=== PATIENT | female | born 1995 | race Caucasian/White ===

== ENCOUNTER 2021-11-13 17:09 | Outpatient (RCR) | payer OTHER, SELFPAY ==
[2021-11-14] MEDS: RHO(D) IMMUNE GLOBULIN 300 MCG/2 ML SYRINGE IM (13:18)
== END 2022-02-11 23:59 | disposition home or self-care (01) ==
LOC: ANHLAB 17:09
PROVIDERS: PCP Registered Nurse; Visit Provider Obstetrics & Gynecology
DX: Z29.13 Encounter for prophylactic Rho(D) immune globulin (principal); O36.0190 Maternal care for anti-D [Rh] antibodies, unspecified trimester, not applicable or unspecified; Z3A.00 Weeks of gestation of pregnancy not specified
CPT/HCPCS: 36415; 85461; 90384; 96372; J2790

== ENCOUNTER 2021-12-19 11:17 | Outpatient (CLI) | payer OTHER, SELFPAY ==
[2021-12-19 11:48] VITALS: BMI 30.8
[2021-12-19 11:57] VITALS: BP 117/68; PULSE 88
[2021-12-19 12:00] VITALS: BP 118/66; PULSE 85
[2021-12-19 12:03] LABS: Basophils Percent Auto 0.4 % (0.2-1.2); Eosinophils Percent Auto 0.3 % (0-4.4); Hematocrit 30.1 % (37.0-47.0); Hemoglobin 9.4 g/dL (12.0-15.0); Immature Granulocyte Absolute 0.08 K/mm3 (0.00-0.031); Immature Granulocyte Percent A 0.9 % (0-0.5); Lymphocytes Absolute Auto 2.14 K/mm3 (0.9-3.2); Lymphocytes Percent Auto 22.9 % (18.3-44.2); Mean Corpuscular HGB Conc 31.2 g/dl (32-36); Mean Corpuscular Hemoglobin 28.1 pg (26-34); Mean Corpuscular Volume 90.1 fl (80-100); Mean Platelet Volume 11.2 fl (7.4-10.4); Monocytes Absolute Auto 0.5 K/mm3 (0.1-0.6); Monocytes Percent Auto 5.8 % (2.6-8.5); Neutrophils Absolute Auto 6.5 K/mm3 (1.3-6.7); Neutrophils Percent Auto 69.7 % (45.5-73.1); Platelet Count Result 187 k/mm3 (150-375); Red Blood Count 3.34 M/mm3 (4.2-5.4); Red Cell Distribution Width 13.2 % (11.5-14.5); White Blood Count 9.3 K/mm3 (4.5-10.0)
[2021-12-19] MEDS: HYDROcodone/acetaminophen (*CRX) 5-325 MG TABLET 1 TAB PO (12:03)
[2021-12-19 12:09] LABS: Creatinine Urine 278.3 mg/dL
[2021-12-19 12:11] LABS: Total Protein Urine Random < 5 mg/dL; Ur Ttl Prot Creatinine Ratio < 0.02 mg/mg (0-0.20)
[2021-12-19 12:13] LABS: Bacteria Urine Trace /hpf; Mucus Urine Heavy /lpf; Squamous Epithelial Cell Urine Many /hpf (Few); WBC Urine 16-20 /hpf (0-3)
[2021-12-19 12:15] VITALS: BP 119/71; PULSE 83
[2021-12-19 12:15] LABS: Alanine Aminotransferase 10 U/L (6-35); Albumin Level 3.2 g/dL (3.5-5.1); Alkaline Phosphatase 106 U/L (38-126); Anion Gap 4 mmol/L (8-16); Aspartate Amino Transferase 19 U/L (14-36); Bilirubin,Total 0.1 mg/dL (0.2-1.3); Blood Urea Nitrogen 7 mg/dL (7-17); Calcium 8.1 mg/dL (8.4-10.2); Carbon Dioxide 21 mmol/L (22-30); Chloride 110 mmol/L (98-107); Estimated CRCL calculation 187 ml/min; Estimated Glomerular Filt Rate > 60; Glucose 85 mg/dL (65-110); Potassium 3.7 mmol/L (3.4-5.0); Sodium 135 mmol/L (137-145); Uric Acid 2.1 mg/dL (2.5-7.5)
[2021-12-19 12:19] LABS: Add Urine Microscopic? YES; Appearance Urine Slightly Cloudy (Clear); Bilirubin Urine 1+ (Negative); Blood Urine Negative (Negative); Color Urine Yellow (Yellow); Glucose Urine UA Negative (Negative); Ketones Urine Negative (Negative); Leukocyte Esterase Ur 1+ LEU/UL (NEGATIVE); Nitrate Urine Negative (Negative); Protein Urine 1+ mg/dL (Negative); Specific Grav Ur >= 1.030 (1.001-1.035)
[2021-12-19 12:30] VITALS: BP 117/65; PULSE 80
== END 2021-12-19 13:20 | disposition home or self-care (01) ==
LOC: ANHOBOP 11:25 → ANHOBPP 11:27
PROVIDERS: PCP Registered Nurse; Visit Provider Obstetrics & Gynecology
DX: O13.9 Gestational [pregnancy-induced] hypertension without significant proteinuria, unspecified trimester (principal); Z3A.00 Weeks of gestation of pregnancy not specified
CPT/HCPCS: 36415; 59025; 80053; 81001; 82570; 84156; 84550; 85025; 87086; 87088; 99199; A9270

== ENCOUNTER 2022-01-09 16:18 | Inpatient (IN) | payer OTHER, SELFPAY ==
[2022-01-09] VITALS (15 sets, daily range): BP systolic 110–131; BP diastolic 67–80; PULSE 66–142; RESP 18; TEMP 36.2–36.4; BMI 31.5
--- NOTE | 2022-01-09 16:18 | LDADM ---
This patient, Angela Jim, was admitted to Labor/Delivery/Recovery 108 on 01/09/22 at 16:18. Plans for labor, pain management and were discussed with patient. Patient/family oriented to hospital policies and general routines including ID bracelet, bed and alarms, visiting hours, pain management, procedures, bathroom and other care routines, personal items, smoking policy, room service/diet and guest tray routines, security routines, and visiting hours. Patient/Family are encouraged to report perceived risks to care and to ask questions if they do not understand what they are told or what they should do. See OBIX for further documentation.
[2022-01-09 17:08] LABS: Basophils Percent Auto 0.2 % (0.2-1.2); Eosinophils Percent Auto 0.2 % (0-4.4); Hematocrit 30.1 % (37.0-47.0); Hemoglobin 9.3 g/dL (12.0-15.0); Immature Granulocyte Absolute 0.08 K/mm3 (0.00-0.031); Lymphocytes Absolute Auto 1.92 K/mm3 (0.9-3.2); Lymphocytes Percent Auto 23.2 % (18.3-44.2); Mean Corpuscular HGB Conc 30.9 g/dl (32-36); Mean Corpuscular Hemoglobin 27.2 pg (26-34); Mean Platelet Volume 10.9 fl (7.4-10.4); Monocytes Absolute Auto 0.4 K/mm3 (0.1-0.6); Monocytes Percent Auto 4.2 % (2.6-8.5); Neutrophils Absolute Auto 5.9 K/mm3 (1.3-6.7); Neutrophils Percent Auto 71.2 % (45.5-73.1); Platelet Count Result 208 k/mm3 (150-375); Red Blood Count 3.42 M/mm3 (4.2-5.4); Red Cell Distribution Width 13.4 % (11.5-14.5); White Blood Count 8.3 K/mm3 (4.5-10.0)
--- NOTE | 2022-01-09 17:24 | P.PNAN_ITS ---
Anes - Eval Pre Procedure Procedure: labor epidural Date/Time: 01/09/22 17:24 Surgeon: barrie Pre Op Diagnosis: Induction of Labor Patient Data Age: 26 Gender: F Height: 1.65 m Weight: 86 kg Last Vital Signs Pulse 142 H 01/09/22 17:00 BP 118/72 01/09/22 17:00 Allergies Allergy/AdvReac Type Severity Reaction Status Date / Time No Known Allergies Allergy Verified 12/19/21 11:47 Laboratory Tests 01/09/22 01/09/22 16:59 16:59 WBC 8.3 K/mm3 K/mm3 (4.5-10.0) RBC 3.42 M/mm3 L M/mm3 (4.2-5.4) Hgb 9.3 g/dL L g/dL (12.0-15.0) Hct 30.1 % L % (37.0-47.0) MCV 88.0 fl fl (80-100) MCH 27.2 pg pg (26-34) MCHC 30.9 g/dl L g/dl (32-36) RDW 13.4 % % (11.5-14.5) Plt Count 208 k/mm3 k/mm3 (150-375) MPV 10.9 fl H fl (7.4-10.4) Immature Gran % (Auto) 1.0 % H % (0-0.5) Neut % (Auto) 71.2 % % (45.5-73.1) Lymph % (Auto) 23.2 % % (18.3-44.2) Dickson % (Auto) 4.2 % % (2.6-8.5) Eos % (Auto) 0.2 % % (0-4.4) Baso % (Auto) 0.2 % % (0.2-1.2) Lymph # (Auto) 1.92 K/mm3 K/mm3 (0.9-3.2) Dickson # (Auto) 0.4 K/mm3 K/mm3 (0.1-0.6) Eos # (Auto) 0.0 K/mm3 K/mm3 (0-0.3) Baso # (Auto) 0.0 K/mm3 K/mm3 (0.0-0.1) Abs Immat Gran (auto) 0.08 K/mm3 H K/mm3 (0.00-0.031) Absolute Neuts (auto) 5.9 K/mm3 K/mm3 (1.3-6.7) Absolute Nucleated RBC 0.0 K/mm3 K/mm3 (0.0-0.012) Nucleated RBC % 0.0 % % (0.0-0.2) RPR Pending Patient hx anesthesia problems: none Family hx anesthesia problems: none Results Review: All pre-operative results and documents have been reviewed as part of the pre- operative evaluation. [facility] Social History Social History Smoking packs per day: 1.5 Smoking cigarettes per day: 30.0 Years smoked: 5 Smoking pack-years: 7.50 Smoking status: Former smoker Substance use: current Last use: 01/08/2022 Spiritual care concerns: No Exam Day of Procedure 01/09/22 17:24
[2022-01-09] MEDS: DINOPROSTONE 10 MG VAG INSERT VAGINAL (17:26)
[2022-01-09 18:00] LABS: Amphetamine Screen Urine Negative (Negative); Barbiturate Screen Urine Negative (Negative); Benzodiazepines Screen Urine Negative (Negative); Cannabinoid Screen Urine Positive (Negative); Cocaine Screen Urine Negative (Negative); Methadone Screen Urine Negative (Negative); Opiate Screen Urine Negative (Negative); Phencyclidine Screen Urine Negative (Negative)
[2022-01-10] VITALS (213 sets, daily range): BP systolic 56–134; BP diastolic 15–100; PULSE 47–274; RESP 18; TEMP 35.5–36.4; O2SAT 91–100
[2022-01-10 06:02] LABS: Rapid Plasma Reagin Non-Reactive (NonReactive)
[2022-01-10] MEDS: OXYTOCIN 30 UNITS/NS 500 ML 30 UNITS/500 ML BAG 6 UNITS IV CONT (06:45)
[2022-01-10] MEDS: LACTATED RINGERS 1,000 ML 125 ML IV CONT ×2 (06:45→08:59)
--- NOTE | 2022-01-10 07:21 | WPDHPUPDATE1 ---
History and Physical Update Update Date/Time: 01/10/22 07:21 this patient is a 26-year-old 1 at 37 weeks gestation 4 days. It was recommended by Maternal Medicine that she be delivered. She had sudden sharp decline in rate of growth. is complicated by POTS, hypothyroidism, history of bariatric surgery. Cervidil induction was started last night, membranes ruptured this morning. She has 2-3, 50%, -2. Pitocin started. History and Physical has been reviewed, including an updated exam of the patient. There are NO changes in the patient's condition. Risks, benefits, and alternatives have been discussed and questions answered. Patient agrees to proceed with procedure.
[2022-01-10] MEDS: fentaNYL CITRATE INJ (*CRX) 100 MCG/2 ML VIAL IV PUSH (07:28)
[2022-01-10] MEDS: ONDANSETRON INJ 4 MG/2 ML VIAL IV PUSH (07:33)
--- NOTE | 2022-01-10 18:43 | P.PCNOB_ITS ---
OB - Delivery Note Procedure Procedure: , indication for induction labor at 37 weeks: Growth restriction, pots syndrome, arrhythmia Events: Intrauterine Growth Restriction (IUGR) Induction method: AROM, Per Pitocin Protocol and Per Cervidil Protocol Delivery monitor: Internal FHT and Internal Uterine Route of delivery: Episiotomy description: Midline Laceration Description: Perineal - 2nd Degree Delivery repair: vicryl Specimen: Yes Quantitative Blood Loss (ml): 300 Anesthesia type: Epidural Levels Baby Date of : 01/10/22 Time of : 18:15 Weeks of gestation at delivery: 37 Weight (pounds): 5 Weight (ounces): 13 Placenta delivery description: Spontaneous Cord Vessel Description: 3 Vessels score one minute: 8 score five minutes: 9 Narrative: Vacuum was applied due to maternal near syncope. Patient has POTS syndrome. There was some mild nonreassuring heart tones. Infant was +4 station, position-OP, there was 2 pulls over 2 contractions, total time less than 1 minute, 1 pop-off, episiotomy midline.
[2022-01-10] MEDS: OXYTOCIN 30 UNITS/NS 500 ML 30 UNITS/500 ML BAG 125 UNITS IV CONT (19:00)
[2022-01-10] MEDS: LIDOCAINE HCL 1% LOCAL INJ 10 ML VIAL (19:01)
[2022-01-10] MEDS: ACETAMINOPHEN 325 MG TABLET 650 MG PO (20:02)
[2022-01-10] MEDS: WITCH HAZEL 40 PADS 1 PAD TOPICAL (20:03)
[2022-01-10] MEDS: BENZOCAINE 20% AER SPR (*SP) 56 GM CAN 1 SPRAY TOPICAL (20:04)
[2022-01-11] VITALS (7 sets, daily range): BP systolic 116–127; BP diastolic 57–72; PULSE 70–97; RESP 14–18; TEMP 36.2–36.8; O2SAT 98–100
[2022-01-11 04:58] LABS: Hematocrit 25.9 % (37.0-47.0)
[2022-01-11] MEDS: ACETAMINOPHEN 325 MG TABLET 650 MG PO ×4 (05:13→23:26)
--- NOTE | 2022-01-11 07:58 | PM.OBPNVD ---
OB - PN: Subj Subjective Date/time seen: 01/11/22 07:58 Patient comments: no complaints, pain well controlled, incisional pain, tolerating diet and flatus present OB - PN: Obj Data Labs CBC & Chem 7: 01/11/22 04:30 Labs: Laboratory Results - last 24 hr 01/11/22 01/11/22 04:30 04:30 Hgb 8.0 L Hct 25.9 L Blood Type A Negative Antibody Screen Not Reportable Screen Negative Baby's Blood Type O pos Baby's ANUPAMA Positive Doses of RhIg Required 1 OB - PN A/P Plan day: 1 Plan: routine care Comments: No problems, routine care Time Spent With Patient Time: Total time spent is greater than 50% in coordination of care (as documented) at patient's floor/unit and/or counseling patient: Exam Const: General: comfortable, no acute distress and alert Resp: Effort & Inspection: normal respiratory effort Auscultation: no crackles, no rales and no rhonchi Cardio: Rate: regular rate Heart sounds: no click, no murmurs and no rubs GI: Inspection: non-distended GI Palp: No Tenderness to palpation present (GI) Auscultation: normal bowel sounds Other: Incision - CDI Extrem: General: normal to inspection, no pedal edema and no calf tenderness
[2022-01-11] MEDS: POLYSACCHARIDE IRON COMPLEX 150 MG CAPSULE PO (11:37)
[2022-01-11] MEDS: DOCUSATE SODIUM 100 MG CAPSULE PO (11:37)
--- NOTE | 2022-01-11 13:19 | WPDANLDPN2 ---
Anes-Prog Note L&D Date/Time: 01/11/22 13:19 Comfortable throughout: labor and delivery Neuraxial method: epidural Epidural/Spinal procedure site: clean & non-tender Neuro status: Neuro function grossly intact. Cardiovascular status: normal Respiratory status: normal Airway patency: baseline Mental status: baseline Post-Op hydration status: normal Vital Signs: Last Vital Signs Temp 36.8 C 01/11/22 12:41 Pulse 97 01/11/22 12:41 Resp 18 01/11/22 12:41 BP 120/65 01/11/22 12:41 Pulse Ox 100 01/11/22 12:41 O2 Del Method Room Air 01/11/22 00:00 Pain score (VAS): 07/16 I/O: Intake & Output 01/10/22 01/11/22 01/11/22 23:59 07:59 15:59 Output Total 274 Balance -274 Post-procedural complaints: none Patient feedback: Patient satisfied with anesthetic care.
--- NOTE | 2022-01-11 14:13 | PCCCNOTE ---
Care Coordination Consult: Met with pt. and ART Michel today. This is their first child. They report the have all necessary baby equipment at home including a crib, car seat, clothing, diapers, and formula. Pt. reports she will bottle feed the baby at discharge. She also reports she has already signed up for [facility] services through [facility] and will follow up at discharge. resources provided. Pt. and Anand report family support. Deny any further needs. Pt. stated she recreationally uses marijuana and will continue to do so at discharge. Denies any other substance use. Denies any substance abuse resources as she states she does not feel addicted to marijuana. Pt. aware that if she chooses to start breast feeding to discuss any questions she has about marijuana use and to her worldwide chief creative officer. Pt. anticipates discharge tomorrow. Denies any further needs.
[2022-01-11] MEDS: RHO(D) IMMUNE GLOBULIN 300 MCG/2 ML SYRINGE IM (18:56)
--- NOTE | 2022-01-12 06:04 | PM.OBPNVD ---
OB - PN: Subj Subjective Date/time seen: 01/12/22 06:04 vaginal delivery day 2 no complaints OB - PN: Obj Data Labs CBC & Chem 7: 01/11/22 04:30 Labs: Laboratory Results - last 24 hr 01/11/22 04:30 Blood Type A Negative Screen Negative Baby's Blood Type O pos Baby's ANUPAMA Positive Doses of RhIg Required 1 OB - PN A/P Plan day: 2 Plan: routine care and discharge home Time Spent With Patient Time: Total time spent is greater than 50% in coordination of care (as documented) at patient's floor/unit and/or counseling patient: Review of Systems Review of Systems: All systems reviewed & are unremarkable except as noted in HPI and below Exam Const: General: cooperative, healthy appearing and comfortable
--- NOTE | 2022-01-12 06:06 | P.DS_ITS ---
DS: Admitting Diagnosis Discharge Date 01/12/2022 Admitting Diagnosis Vaginal delivery OB - DS: Summary OB Procedures : None OB Procedures Intrapartum: Spontaneous Vag Delivery OB Procedures: : None Time Spent with Patient Time attestation: Total time spent providing and/or coordinating discharge services: DS: Data Data Completed and Pending Pending studies at discharge: Pending at discharge 01/10/22 19:05 Surgical [PTH] Routine Labs on day of discharge: Labs from last 24 hours 01/11/22 04:30 Blood Type A Negative Screen Negative Baby's Blood Type O pos Baby's ANUPAMA Positive Doses of RhIg Required 1 Discharge Plan Discharge Attending physician on discharge: Arleth Donovan Discharging Clinician: Tracie Lewis Patient Disposition: Home, Self-Care Activity: pelvic rest Diet: regular Patient Instructions: Antibiotic Form Stand Alone Forms: General Discharge Information Follow-up/Referrals: Tracie Lewis, CNM [Certified Nurse It Operations Specialist] - 4 Weeks Discharge Medications: Continued ferrous sulfate [Iron (ferrous sulfate)] 325 mg (65 mg iron) tablet 1 tablet PO DAILY Date of admission: 01/09/22 16:18 Primary Care Provider: Maria DoloresNicolette Admitting Provider: Arleth Donovan Attending physician on admission: Arleth Donovan Condition: Stable
[2022-01-12 07:50] VITALS: BP 134/74; PULSE 84; RESP 16; TEMP 36.7; O2SAT 100
[2022-01-12] MEDS: ACETAMINOPHEN 325 MG TABLET 650 MG PO ×2 (08:14→12:08)
[2022-01-12] MEDS: POLYSACCHARIDE IRON COMPLEX 150 MG CAPSULE PO (08:14)
[2022-01-12] MEDS: DOCUSATE SODIUM 100 MG CAPSULE PO (08:14)
[2022-01-14 09:13] VITALS: BP 124/74; PULSE 83; RESP 16; TEMP 37.3; O2SAT 100
== END 2022-01-12 19:10 | disposition home or self-care (01) | DRG 807 ==
LOC: ANHLDR 16:23 → ANHOB2 01-10 22:59
PROVIDERS: Admitting Provider Obstetrics & Gynecology; PCP Registered Nurse; Visit Provider Obstetrics & Gynecology
DX: O99.284 Endocrine, nutritional and metabolic diseases complicating childbirth (principal); Z37.0 Single live birth; O36.5930 Maternal care for other known or suspected poor fetal growth, third trimester, not applicable or unspecified; O99.42 Diseases of the circulatory system complicating childbirth; I49.8 Other specified cardiac arrhythmias; O70.1 Second degree perineal laceration during delivery; O69.81X0 Labor and delivery complicated by cord around neck, without compression, not applicable or unspecified; O43.113 Circumvallate placenta, third trimester; Z3A.37 37 weeks gestation of pregnancy; O99.844 Bariatric surgery status complicating childbirth; O36.8330 Maternal care for abnormalities of the fetal heart rate or rhythm, third trimester, not applicable or unspecified
CPT/HCPCS: 36415; 80307; 85014; 85018; 85025; 85461; 86592; 86850; 86880; 86900; 86901; 86902; 88307; 90384; A9270; J2405; J2590; J2790; J3010; J7120

== ENCOUNTER 2023-11-17 16:56 | Emergency (ER) | payer BC, SELFPAY ==
--- NOTE | ~2023-11-17 | XR_ITS ---
EXAM: XR wrist RT 2V, XR hand RT min 3V DATE: 11/17/2023 18:03 HISTORY: pain . COMPARISON: None available. FINDINGS: Normal mineralization. Mildly comminuted fracture of the fifth metacarpal head with 25 deg thais anterior angulation and mild impaction. No lytic or blastic lesion. Joint spaces are maintained. No erosion or periosteal change. Soft tissues within normal limits. IMPRESSION: Mildly comminuted, anteriorly angulated and mildly impacted fracture of the right fifth m etacarpal head (boxer's type fracture). Reviewed, dictated and finalized at location K. IMPRESSION: Mildly comminuted, anteriorly angulated and mildly impacted fractur e of the right fifth metacarpal head (boxer's type fracture).
[2023-11-17 17:00] VITALS: BP 143/89; PULSE 103; RESP 18; TEMP 36.3; O2SAT 100
--- NOTE | 2023-11-17 17:53 | ED.UPPEXIN ---
HPI - Extremity Injury (Upper) General Chief Complaint: Extremity Injury, Upper Stated Complaint: right hand injury Time Seen by Provider: 11/17/23 17:48 History of Present Illness HPI narrative: 28-year-old female presents to emergency department with right hand pain for 2 days. Patient states 2 days ago she punched in oak table. She is evaluated at [facility] and was told she had a boxer's fracture. She was placed in a splint and given orthopedic follow-up. Patient states she called the orthopedist she is referred you but they do not take her insurance. She states she has contacted her PCP and insurance company was told by both parties that she needs to present at any ED for a orthopedic referral. She is not currently wearing her splint because she states she took it off and left in the car because she cannot drive with it on. She has reports pain to the 4th and 5th metacarpals and the proximal 4th and 5th digits with overlying ecchymosis and swelling. She is reporting some pain to the distal wrist as well. She denies difficulty with finger or wrist range of motion. No other injuries acquired. Related Data Home Medications Medication Instructions Recorded Confirmed No Home Medications 11/17/23 11/17/23 Allergies Allergy/AdvReac Type Severity Reaction Status Date / Time No Known Allergies Allergy Verified 11/17/23 17:33 Review of Systems Review of Systems: CONSTITUTIONAL: Denies fever, chills, or sweats. EYES: Denies visual changes, redness, or discharge. ENT: Denies rhinorrhea, congestion, sore throat, or otalgia. CARDIOVASCULAR: Denies chest pain, palpitations, or edema. RESPIRATORY: Denies cough or dyspnea. GASTROINTESTINAL: Denies abdominal pain, nausea, vomiting, or diarrhea. GENITOURINARY: Denies dysuria or hematuria. SKIN: Denies rash or itching. MUSCULOSKELETAL: See HPI NEUROLOGIC: Denies headache, numbness, or weakness. PSYCHIATRIC: Denies anxiety or depression. [facility] Social History Social History Smoking packs per day: 1.5 Smoking cigarettes per day: 30.0 Years smoked: 5 Smoking pack-years: 7.50 Smoking status: Former smoker Substance use: current Last use: 01/08/2022 Spiritual care concerns: No Exam Narrative: GENERAL: Well-appearing, well-nourished, and in no acute distress. HEAD: Normocephalic, atraumatic. NECK: Supple. CHEST: Clear to auscultation. No respiratory distress. HEART: Regular rate and rhythm. No murmur heard. Normal peripheral pulses. EXTREMITIES: RUE: Mild tenderness to the distal aspect of the wrist overlying the dorsal side. There is tenderness to the 4th and 5th metacarpals and 4th and 5th MCPs without obvious deformity. There is ecchymosis to the dorsum and palmar aspect of the hand overlying the 4th and 5th metacarpals as well as ecchymosis to the dorsum of the 3rd, 4th and 5th digits. No tenderness to the phalanges. Patient has full range of motion of wrist and fingers. Cap refill less than 2 in all fingers. Sensation intact throughout. Radial pulse 2 +. SKIN: Warm, dry, no rash. NEURO: No focal deficits. Alert and oriented x3 Course Vital Signs Vital signs: Vital Signs Temperature 97.4 F L 11/17/23 17:00 Pulse Rate 103 H 11/17/23 17:00 Respiratory Rate 18 11/17/23 17:00 Blood Pressure 143/89 H 11/17/23 17:00 Pulse Oximetry 100 11/17/23 17:00 Temperature 97.4 F L 11/17/23 17:00 Pulse Rate 103 H 11/17/23 17:00 Respiratory Rate 18 11/17/23 17:00 Blood Pressure 143/89 H 11/17/23 17:00 Pulse Oximetry 100 11/17/23 17:00 MDM - Extremity Injury (Upper) MDM Narrative Medical decision making narrative: 28-year-old female presents emergency department for right hand pain and orthopedic referral after she function of table 2 days ago. See HPI for further history. Triage vitals significant for mild tachycardia 103 blood pressure 143/89, otherwis
--- NOTE | 2023-11-17 19:05 | PC.NURSE ---
Report given to LETICIA Hardy
[2023-11-17 19:42] VITALS: BP 123/73; PULSE 86; RESP 16; O2SAT 98
== END 2023-11-17 19:43 | disposition home or self-care (01) ==
PROVIDERS: Emergency Provider Physician Assistant; PCP Registered Nurse
DX: S62.396A Other fracture of fifth metacarpal bone, right hand, initial encounter for closed fracture (principal); Z87.891 Personal history of nicotine dependence; W22.8XXA Striking against or struck by other objects, initial encounter
CPT/HCPCS: 29125; 73100; 73130; 99284